=== PATIENT | male | born 1990 | race Caucasian/White ===

== ENCOUNTER 2023-02-06 06:13 | Day surgery (SDC) | payer OTHER ==
[~2023-02-06] VITALS: Ht 182.9 cm; Wt 90.7 kg
[2023-02-06] MEDS ORDERED: BUPIVACAINE-MPF 0.25% 30 ML VIAL INJ ONE (07:15)
[2023-02-06] MEDS ORDERED: LIDOCAINE/EPI MPF 1%1:200000 30 ML VIAL INJ ONE (07:15)
[2023-02-06] MEDS ORDERED: PROPOFOL 200 MG/20 ML VIAL IV ONE ×2 (08:10→09:25)
[2023-02-06] MEDS ORDERED: SUCCINYLCHOLINE CHLORIDE 200 MG/10 ML VIAL IVP ONE (08:14)
[2023-02-06] MEDS ORDERED: HYDROGEN PEROXIDE 3% 240 ML BTL TP ONE (08:50)
[2023-02-06] MEDS ORDERED: SEVOFLURANE 250 ML BTL INH ONE (08:50)
[2023-02-06] MEDS ORDERED: MIDAZOLAM 2 MG/2 ML VIAL ONE (08:56)
[2023-02-06] MEDS ORDERED: fentaNYL citrate 0.05 MG/ML VIAL ONE (08:57)
[2023-02-06] MEDS ORDERED: DEXAMETHASONE 4 MG/ML VIAL ONE (09:25)
[2023-02-06] MEDS ORDERED: ONDANSETRON 4 MG/2 ML VIAL ONE (09:25)
[2023-02-06] MEDS ORDERED: KETOROLAC 30 MG/ML VIAL ONE (09:25)
[2023-02-06] MEDS ORDERED: ACETAMINOPHEN 100 ML IV ONE (09:29)
== END 2023-02-06 11:30 | disposition home or self-care (01) ==
LOC: MDS 06:13 → MMU 06:25 → MDS 11:30
PROVIDERS: ATTEND Surgery
DX: K60.3 Anal fistula (principal); K64.0 First degree hemorrhoids
CPT/HCPCS: 46275; 71045; 88304; J0330; J1100; J1885; J2001; J2250; J2405; J2704; J3010; J3490; J7120